=== PATIENT | male | born 2000 | race Caucasian/White ===

== ENCOUNTER → 2024-10-06 11:26 | Outpatient (CLI) | payer OTHER, SELFPAY ==
--- NOTE | 2024-10-06 11:29 | DI.RAD.S_ITS ---
PROCEDURE: XR CHEST 2V INDICATIONS: Chest tightness TECHNIQUE: 2 views of the chest were acquired. COMPARISON: None. FINDINGS: Surgical changes and devices: None. Lungs and pleura: Lungs are clear. No pleural effusions or pneumothorax. Mediastinum: Mediastinal contours are normal. Heart size is normal. Bones and chest wall: No suspicious bony abnormalities. Soft tissues appear unremarkable. IMPRESSION: No acute cardiopulmonary abnormality is seen. Dictated by: Brodie Lara M.D. on 10/06/2024 at 10:53 Approved by: Brodie Lara M.D. on 10/06/2024 at 10:53
== END ==
PROVIDERS: Referring Provider Registered Nurse; Visit Provider Registered Nurse
DX: R07.89 Other chest pain (principal)
CPT/HCPCS: 71046

== ENCOUNTER 2024-10-09 10:47 | Emergency (ER) | payer OTHER, SELFPAY ==
[2024-10-09 11:15] VITALS: BP 139/73; PULSE 79; RESP 18; TEMP 36.5; O2SAT 98; BMI 35.9
--- NOTE | 2024-10-09 11:18 | DI.RAD.S_ITS ---
PROCEDURE: XR CHEST 1V INDICATIONS: chest pain TECHNIQUE: One view of the chest was acquired. COMPARISON: [facility], CR, XR CHEST 2V, 10/06/2024, 11:25. FINDINGS AND IMPRESSION: On this limited single view study with low lung volumes, no airspace consolidation or pleural effusion is seen. Normal heart size, unchanged. Unremarkable osseous structures. Dictated by: Tra Rivera M.D. on 10/09/2024 at 12:08 Approved by: Tra Rivera M.D. on 10/09/2024 at 12:08
--- NOTE | 2024-10-09 11:19 | EKG_ITS ---
[address] [address] [address] [address] Test Date: 2024-10-09 Pat Name: Arash Ocampo Department: Room: Gender: Male [employer]: VAL : 2000 Requested By: Order Number: [id number] Reading MD: Dmitriy Zaidi MD Measurements Intervals [place] Rate: 81 P: 20 SD: 144 QRS: 7 QRSD: 86 T: 45 QT: 350 QTc: 406 Interpretive Statements Normal sinus rhythm Electronically Signed On 10-10-2024 7:36:26 PST by Dmitriy Zaidi MD
[2024-10-09 11:44] LABS: Add Manual Diff / Slide Review NO; Basophils Absolute Auto 100 /uL (0-100); Basophils Percent Auto 1.1 % (0-2); Eosinophils Absolute Auto 100 /uL (0-450); Eosinophils Percent Auto 0.9 % (2-4); Hematocrit 42.6 % (41-53); Lymphocytes Absolute Auto 1900 /uL (1100-4500); Lymphocytes Percent Auto 29.8 % (25-40); Mean Corpuscular HGB Conc 35.3 % (30-36); Mean Corpuscular Hemoglobin 27.7 PG (26-34); Mean Corpuscular Volume 78.6 fL (80-100); Monocytes Absolute Auto 500 /uL (0-900); Monocytes Percent Auto 7.9 % (3-14); Neutrophils Absolute Auto 3800 /uL (1500-7000); Neutrophils Percent Auto 60.3 % (50-75); Platelet Count 256 X10^3/uL (150-400); Red Blood Cell Count 5.41 X10^6/uL (4.5-5.9); Red Cell Distribution Width 14.2 % (11.6-14.8); White Blood Cell Count 6.3 X10^3/uL (4.5-11.0)
[2024-10-09 11:50] LABS: INR 1.1 (0.9-1.3)
[2024-10-09 11:52] LABS: Alanine Aminotransferase 85 IU/L (<50); Albumin 4.5 g/dL (3.5-5.0); Albumin Globulin Ratio 1.5 (1.0-2.8); Alkaline Phosphatase 63 U/L (38-126); Aspartate Aminotransferase 54 IU/L (17-59); BUN Creatinine Ratio 12.3 (6-22); Bilirubin Total 0.5 mg/dL (0.2-1.3); Blood Urea Nitrogen 10 mg/dL (9-20); Carbon Dioxide 23 mmol/L (22-32); Chloride 106 mmol/L (98-107); Creatine Kinase 114 U/L (55-170); Estimated Glomerular Filt Rate > 60 mL/min (>60); Globulin 3.1 g/dL (1.7-4.1); Glucose 102 mg/dL (70-100); HEMOLYSIS < 15 (0-50); Lipase 65 U/L (23-300); Magnesium 1.9 mg/dL (1.6-2.3); Sodium 138 mmol/L (137-145); Total Protein 7.6 g/dL (6.3-8.2)
[2024-10-09 11:53] LABS: PTT Partial Thromboplastin Tim 35 SECONDS (25.1-36.5)
[2024-10-09 12:04] LABS: NT-proBNP (BNP-Adult 18+) < 20 pg/mL (<125); Troponin I < 0.012 ng/mL (0.01-0.034)
--- NOTE | 2024-10-09 13:42 | ED_ITS ---
HPI - Chest Pain <Jane Guerrero PA-C - Last Filed: 10/09/24 20:08> General Chief Complaint: Chest Pain Stated Complaint: Mild chest pain Time Seen by Provider: 10/09/24 13:40 Source: patient Mode of arrival: Ambulatory Limitations: no limitations History of Present Illness HPI narrative: Mr. Ocampo is a pleasant 23-year-old male with a past medical history of ADHD, asthma who presents to the emergency department for chest tightness x3 days and right upper quadrant abdominal pain x1 week. Patient states he has been having some intermittent right upper quadrant abdominal pain nausea and vomiting over the last week which is improving however 3 days ago he noticed some sensation of tightness in his chest and in the epigastric region of his abdomen. This chest tightness is worsened by smoking marijuana, drinking alcohol, occasionally food. Because of his history of asthma he had a chest x- ray performed on 10/06/2024 by the walk-in clinic which was negative. He did have an episode of vomiting last night however no nausea today. Denies wheezing, difficulty breathing, shortness of breath, diarrhea, fevers, chills, cough. He did start taking Zepbound 2 weeks ago for weight loss. Related Data Home Medications Medication Instructions Recorded Confirmed albuterol sulfate 90 mcg/actuation 1 inh inhalation ONCE 10/06/24 10/06/24 aerosol inhaler methylphenidate HCl 36 mg 36 mg PO DAILY 10/06/24 10/06/24 tablet,extended release 24 hr (Concerta) Previous Rx's Medication Instructions Recorded ondansetron 4 mg disintegrating 4 mg PO Q8H PRN nausea and 10/09/24 tablet vomiting #14 tabs pantoprazole 40 mg tablet,delayed 40 mg PO DAILY #14 tabs 10/09/24 release (Protonix) Allergies Allergy/AdvReac Type Severity Reaction Status Date / Time No Known Drug Allergies Allergy Unverified 10/06/24 11:07 Review of Systems <Jane Guerrero PA-C - Last Filed: 10/09/24 20:08> Review of Systems ROS Unobtainable: All systems reviewed & are unremarkable except as noted in HPI and below Patient History <Jane Guerrero PA-C - Last Filed: 10/09/24 20:08> Social History Smoking Status: Never smoker Smoking Status: Never smoker Exam <Jane Guerrero PA-C - Last Filed: 10/09/24 20:08> Narrative Exam Narrative: GENERAL: 23 year old patient appears stated age. Obese patient, in no acute distress. HEAD: Atraumatic. Normocephalic. EYES: No scleral icterus. No injection or drainage. NECK: Trachea midline. Cervical ROM intact. CARDIOVASCULAR: Regular rate and rhythm. RESPIRATORY: ?Nonlabored respirations. ?Speaking in clear, full sentences. ?Clear to auscultation. Breath sounds equal bilaterally. No wheezes, rales, or rhonchi. ? GASTROINTESTINAL: Abdomen soft, non-tender, nondistended. Abdomen is protuberant. Subjective right upper quadrant and epigastric pain with no reproducible tenderness. EXTREMITIES: No edema or joint tenderness. NEURO: AOx3. ?Clear speech. ?Moves all 4 extremities appropriately. SKIN: No rash or erythema of visible areas Initial Vital Signs Initial Vital Signs: Vital Signs Temperature 97.7 F 10/09/24 11:15 Pulse Rate 79 10/09/24 11:15 Respiratory Rate 18 10/09/24 11:15 Blood Pressure 139/73 10/09/24 11:15 Pulse Oximetry 98 10/09/24 11:15 Oxygen Delivery Method Room Air 10/09/24 11:15 <Maurice Merchant MD - Last Filed: 10/11/24 12:42> Initial Vital Signs Initial Vital Signs: Vital Signs Temperature 97.7 F 10/09/24 11:15 Pulse Rate 79 10/09/24 11:15 Respiratory Rate 18 10/09/24 11:15 Blood Pressure 139/73 10/09/24 11:15 Pulse Oximetry 98 10/09/24 11:15 Oxygen Delivery Method Room Air 10/09/24 11:15 Scores <Jane Guerrero PA-C - Last Filed: 10/09/24 20:08> HEART Score Heart Score history: Slightly Suspicious Heart Score EKG: Normal Heart Score Age: < 45 years old Heart Score risk factors: 1-2 risk factors Heart Score troponin: < or = to normal limit Heart Score Total: 1 PERC Score Age greater than or equal to 50 years: No Heart rate greater than or equal to 100 bpm: No Room Air O2 Sat less than 95%: No Unilateral leg swelling: No Recent trauma or surgery: No Hemoptysis: No Prior PE or DVT: No Hormone Use: No Total PERC Score: 0 <Maurice Merchant MD - Last Filed: 10/11/24 12:42> HEART Score Heart Score Total: 1 PERC Score Total PERC Score: 0 Course <Jane Guerrero PA-C - Last Filed: 10/09/24 20:08> Orders Ordered: Discontinued Medications Aspirin (Aspirin 81 Mg Chew Tab) 324 mg PO NOW ONE Stop: 10/09/24 11:19 Last Admin: 10/09/24 13:44 Dose: Not Given Documented By: KARINA Ondansetron HCl (Ondansetron 4 Mg/2 Ml Inj) 4 mg IV NOW ONE Stop: 10/09/24 13:56 Last Admin: 10/09/24 14:37 Dose: 4 mg Documented By: CARA Pantoprazole Sodium (Pantoprazole 40 Mg Vial) 40 mg IV NOW ONE Stop: 10/09/24 13:56 Last Admin: 10/09/24 14:37 Dose: 40 mg Documented By: CARA Vital Signs Vital signs: Vital Signs - 8 hr 10/09/24 15:31 Pulse Rate 73 Respiratory Rate 20 Blood Pressure 128/74 Pulse Oximetry 97 Oxygen Delivery Method Room Air <Maurice Merchant MD - Last Filed: 10/11/24 12:42> Orders Ordered: Discontinued Medications Aspirin (Aspirin 81 Mg Chew Tab) 324 mg PO NOW ONE Stop: 10/09/24 11:19 Last Admin: 10/09/24 13:44 Dose: Not Given Documented By: KARINA Ondansetron HCl (Ondansetron 4 Mg/2 Ml Inj) 4 mg IV NOW ONE Stop: 10/09/24 13:56 Last Admin: 10/09/24 14:37 Dose: 4 mg Documented By: CARA Pantoprazole Sodium (Pantoprazole 40 Mg Vial) 40 mg IV NOW ONE Stop: 10/09/24 13:56 Last Admin: 10/09/24 14:37 Dose: 40 mg Documented By: CARA Vital Signs Vital signs: Vital Signs - 8 hr 10/09/24 15:31 Pulse Rate 73 Respiratory Rate 20 Blood Pressure 128/74 Pulse Oximetry 97 Oxygen Delivery Method Room Air MDM - Chest Pain <Jane Guerrero PA-C - Last Filed: 10/09/24 20:08> Medical Records Data Attestation: I reviewed the patient's medical records. Lab Data 10/09/24 11:30 10/09/24 11:30 Labs: Lab Results 10/09/24 Range/Units 11:30 WBC 6.3 (4.5-11.0) X10^3/uL RBC 5.41 (4.5-5.9) X10^6/uL Hgb 15.0 (13.5-17.5) g/dL Hct 42.6 (41-53) % MCV 78.6 L (80-100) fL MCH 27.7 (26-34) PG MCHC 35.3 (30-36) % RDW 14.2 (11.6-14.8) % Plt Count 256 (150-400) X10^3/uL Neut % (Auto) 60.3 (50-75) % Lymph % (Auto) 29.8 (25-40) % [place] % (Auto) 7.9 (3-14) % Eos % (Auto) 0.9 L (2-4) % Baso % (Auto) 1.1 (0-2) % Neut # (Auto) 3800 (6496-2041) /uL Lymph # (Auto) 1900 (2628-6121) /uL [place] # (Auto) 500 (0-900) /uL Eos # (Auto) 100 (0-450) /uL Baso # (Auto) 100 (0-100) /uL PT 13.0 H (9.4-12.5) SECONDS INR 1.1 (0.9-1.3) APTT 35 (25.1-36.5) SECONDS Sodium 138 (137-145) mmol/L Potassium 4.0 (3.4-5.1) mmol/L Chloride 106 (98-107) mmol/L Carbon Dioxide 23 (22-32) mmol/L BUN 10 (9-20) mg/dL Creatinine 0.81 (0.66-1.25) mg/dL Estimated GFR > 60 (>60) mL/min BUN/Creatinine Ratio 12.3 (6-22) Glucose 102 H (70-100) mg/dL Calcium 9.0 (8.4-10.2) mg/dL Magnesium 1.9 (1.6-2.3) mg/dL Total Bilirubin 0.5 (0.2-1.3) mg/dL AST 54 (17-59) IU/L ALT 85 H (<50) IU/L Alkaline Phosphatase 63 (38-126) U/L Total Creatine Kinase 114 (55-170) U/L Troponin I < 0.012 (0.01-0.034) ng/mL NT-Pro-B Natriuret Pep < 20 (<125) pg/mL Total Protein 7.6 (6.3-8.2) g/dL Albumin 4.5 (3.5-5.0) g/dL Globulin 3.1 (1.7-4.1) g/dL Albumin/Globulin Ratio 1.5 (1.0-2.8) Lipase 65 (23-300) U/L Imaging Data Chest x-ray: Radiologist's Impression: PROCEDURE: XR CHEST 1V INDICATIONS: chest pain TECHNIQUE: One view of the chest was acquired. COMPARISON: [facility], XR CHEST 2V, 10/06/2024, 11:25. FINDINGS AND IMPRESSION: On this limited single view study with low lung volumes, no airspace consolidation or pleural effusion is seen. Normal heart size, unchanged. Unremarkable osseous structures. Abdomen US: Radiologist's Impression: PROCEDURE: US ABDOMEN LIMITED INDICATIONS: RIGHT UPPER QUADRANT PAIN TECHNIQUE: Real-time focused scanning was performed of the abdomen, with image documentation. COMPARISON: [facility], XR CHEST 1V, 10/09/2024, 11:33. FINDINGS: The liver demonstrates mildly enlarged size. The liver demonstrates generalized moderately increased echogenicity. This decreases ultrasound sensitivity for detection of hepatic masses. Within the left lobe of the liver, there is apparent focus of calcification. There is apparent focal fatty sparing seen adjacent to the gallbladder. No findings of gallstones or sludge are seen. The gallbladder wall is not thickened, measuring 3 mm or less. No specific pericholecystic fluid is seen. The sonographic Chow sign is negative. There is no biliary dilatation, the common hepatic duct measures 3-4 mm. The pancreas is not well seen. Overall scan quality is limited by overlying bowel gas. IMPRESSION: The gallbladder demonstrates a normal sonographic appearance. No biliary dilatation is seen. Mildly enlarged, fatty infiltrated liver. Apparent focus of calcification seen within the left liver, which may related to vascular calcification, or this focus may simply be artifactual. Attention should be paid on follow-up studies, although no specific imaging follow-up is recommended. ECG Data Interpretation: Normal sinus rhythm with a rate of 81 beats per minute and a QTC of 406. [facility] Narrative Medical decision making narrative: 23-year-old male with a past medical history of ADHD, asthma who presents to the emergency department for chest tightness x3 days and right upper quadrant abdominal pain x1 week. Differential diagnosis includes but is not limited to cholecystitis, cholelithiasis, fatty liver, gastritis, GERD, medication side effect, ACS, asthma exacerbation, etc. On exam patient is in no acute distress, nontoxic appearing, vital signs within normal limits, PERC negative. Lungs clear to auscultation bilaterally. Subjective epigastric and right upper quadrant abdominal pain with intermittent nausea and vomiting and some chest tightness exacerbated by smoking weed, eating, drinking alcohol. Suspect symptoms are more related to GI rather than cardiac. Cardiac workup initiated in triage reveals negative chest x-ray, negative troponin, negative BNP. Chest sx constant 3 days, delta trop not warranted. Patient does have slightly elevated ALT at 85 which he reports having before. Normal lipase 65. We will add on Zofran, Protonix, right upper quadrant ultrasound. Patient's symptoms improved after ED treatment. Right upper quadrant ultrasound reveals normal gallbladder. There is a mildly enlarged, fatty infiltration of the liver. And an apparent focus of calcification seen within the left liver which may be related to vascular calcification or this focused may simply be artifactual. Discussed with patient that his symptoms are consistent with possible gastritis/acid reflux/fatty liver. Recommended avoiding alcohol and marijuana at this time, healthy diet, exercise. Prescribed Protonix and Zofran and recommended follow up with PCP and possibly GI for further evaluation. Patient's imaging results were printed and discussed with him including incidental findings. He verbalized understanding of all information and is agreeable to this plan. Pain much improved at this time, tolerating PO. Stable for discharge home. <Maurice Merchant MD - Last Filed: 10/11/24 12:42> Lab Data Labs: Lab Results 10/09/24 Range/Units 11:30 WBC 6.3 (4.5-11.0) X10^3/uL RBC 5.41 (4.5-5.9) X10^6/uL Hgb 15.0 (13.5-17.5) g/dL Hct 42.6 (41-53) % MCV 78.6 L (80-100) fL MCH 27.7 (26-34) PG MCHC 35.3 (30-36) % RDW 14.2 (11.6-14.8) % Plt Count 256 (150-400) X10^3/uL Neut % (Auto) 60.3 (50-75) % Lymph % (Auto) 29.8 (25-40) % [place] % (Auto) 7.9 (3-14) % Eos % (Auto) 0.9 L (2-4) % Baso % (Auto) 1.1 (0-2) % Neut # (Auto) 3800 (7019-1961) /uL Lymph # (Auto) 1900 (6440-1900) /uL [place] # (Auto) 500 (0-900) /uL Eos # (Auto) 100 (0-450) /uL Baso # (Auto) 100 (0-100) /uL PT 13.0 H (9.4-12.5) SECONDS INR 1.1 (0.9-1.3) APTT 35 (25.1-36.5) SECONDS Sodium 138 (137-145) mmol/L Potassium 4.0 (3.4-5.1) mmol/L Chloride 106 (98-107) mmol/L Carbon Dioxide 23 (22-32) mmol/L BUN 10 (9-20) mg/dL Creatinine 0.81 (0.66-1.25) mg/dL Estimated GFR > 60 (>60) mL/min BUN/Creatinine Ratio 12.3 (6-22) Glucose 102 H (70-100) mg/dL Calcium 9.0 (8.4-10.2) mg/dL Magnesium 1.9 (1.6-2.3) mg/dL Total Bilirubin 0.5 (0.2-1.3) mg/dL AST 54 (17-59) IU/L ALT 85 H (<50) IU/L Alkaline Phosphatase 63 (38-126) U/L Total Creatine Kinase 114 (55-170) U/L Troponin I < 0.012 (0.01-0.034) ng/mL NT-Pro-B Natriuret Pep < 20 (<125) pg/mL Total Protein 7.6 (6.3-8.2) g/dL Albumin 4.5 (3.5-5.0) g/dL Globulin 3.1 (1.7-4.1) g/dL Albumin/Globulin Ratio 1.5 (1.0-2.8) Lipase 65 (23-300) U/L Discharge Plan Departure Patient Disposition: Home Clinical Impression: Fatty infiltration of liver, Abdominal pain, RUQ, Abdominal pain, epigastric Instructions: DI for Nonalcoholic Fatty Liver Disease Activity Restrictions/Additional Instructions: They you for coming to the emergency department. Today you were evaluated for chest pain but also right upper quadrant abdominal discomfort and nausea and vomiting. Your workup is reassuring from a cardiac/pulmonary viewpoint. Your liver enzymes (ALT) was slightly elevated and the ultrasound of your liver showed fatty liver. It is very important to follow up with the primary care doctor for further evaluation, make healthy lifestyle changes such as decreased fatty foods, increase water and exercise. I recommend you avoid alcohol or smoking. I prescribed you a daily medication to take to help with gastritis/acid reflux in addition to an as-needed nausea medication. Please return to the emergency department if you develop any new or concerning symptoms, worsening pain or other concerns. Please follow up with your primary care doctor within the next 2-3 days for ER follow-up. (If you do not have a PCP you can call [phone]. ?to schedule an appointment with an [facility] Primary Care Provider) IF YOU DEVELOP ANY NEW OR WORSENING SYMPTOMS, RETURN TO THE ER! Please read the attached instructions, they highlight more specific treatments and interventions for you at home. Thank you for letting me participate in your care, Jane Guerrero PA-C Prescriptions: New pantoprazole [Protonix] 40 mg tablet,delayed release (DR/EC) 40 mg PO DAILY Qty: 14 0RF ondansetron 4 mg tablet,disintegrating 4 mg PO Q8H PRN (Reason: nausea and vomiting) Qty: 14 0RF No Action methylphenidate HCl [Concerta] 36 mg tablet extended release 24hr 36 mg PO DAILY albuterol sulfate 90 mcg/actuation HFA aerosol inhaler 1 inh inhalation ONCE Stand Alone Forms: Patient Portal/API/Survey ED Sign-out <Maurice Merchant MD - Last Filed: 10/11/24 12:42> Cosign ED Attending Cosignature Attestation: I was immediately available in the department for consultation. ?This documentation has been reviewed and I agree with assessment and plan. Supervised by Maurice Merchant MD
--- NOTE | 2024-10-09 13:55 | DI.US.S_ITS ---
PROCEDURE: US ABDOMEN LIMITED INDICATIONS: RIGHT UPPER QUADRANT PAIN TECHNIQUE: Real-time focused scanning was performed of the abdomen, with image documentation. COMPARISON: [facility], CR, XR CHEST 1V, 10/09/2024, 11:33. FINDINGS: The liver demonstrates mildly enlarged size. The liver demonstrates generalized moderately increased echogenicity. This decreases ultrasound sensitivity for detection of hepatic masses. Within the left lobe of the liver, there is apparent focus of calcification. There is apparent focal fatty sparing seen adjacent to the gallbladder. No findings of gallstones or sludge are seen. The gallbladder wall is not thickened, measuring 3 mm or less. No specific pericholecystic fluid is seen. The sonographic Chow sign is negative. There is no biliary dilatation, the common hepatic duct measures 3-4 mm. The pancreas is not well seen. Overall scan quality is limited by overlying bowel gas. IMPRESSION: The gallbladder demonstrates a normal sonographic appearance. No biliary dilatation is seen. Mildly enlarged, fatty infiltrated liver. Apparent focus of calcification seen within the left liver, which may related to vascular calcification, or this focus may simply be artifactual. Attention should be paid on follow-up studies, although no specific imaging follow-up is recommended. Dictated by: Brodie Lara M.D. on 10/09/2024 at 14:01 Approved by: Brodie Lara M.D. on 10/09/2024 at 14:03
[2024-10-09] MEDS: ONDANSETRON 4 MG/2 ML INJ IV (14:37)
[2024-10-09] MEDS: PANTOPRAZOLE 40 MG VIAL IV (14:37)
[2024-10-09 15:31] VITALS: BP 128/74; PULSE 73; RESP 20; O2SAT 97
== END 2024-10-09 15:47 | disposition home or self-care (01) ==
PROVIDERS: Emergency Medicine; Emergency Provider Physician Assistant
DX: R10.11 Right upper quadrant pain (principal); R10.13 Epigastric pain; K76.0 Fatty (change of) liver, not elsewhere classified
CPT/HCPCS: 36415; 71045; 76705; 80053; 82550; 83690; 83735; 83880; 84484; 85025; 85610; 85730; 93005; 96374; 96375; 99284; J2405; J2470

== ENCOUNTER → 2024-11-07 09:46 | Outpatient (CLI) | payer OTHER, SELFPAY ==
[2024-11-07 18:52] LABS: Add Manual Diff / Slide Review NO; Basophils Absolute Auto 0 /uL (0-100); Basophils Percent Auto 0.6 % (0-2); Eosinophils Absolute Auto 0 /uL (0-450); Eosinophils Percent Auto 0.8 % (2-4); Hematocrit 45.3 % (41-53); Hemoglobin 15.7 g/dL (13.5-17.5); Lymphocytes Absolute Auto 1800 /uL (1100-4500); Lymphocytes Percent Auto 29.5 % (25-40); Mean Corpuscular HGB Conc 34.6 % (30-36); Mean Corpuscular Hemoglobin 27.3 PG (26-34); Mean Corpuscular Volume 79.1 fL (80-100); Monocytes Absolute Auto 500 /uL (0-900); Neutrophils Absolute Auto 3600 /uL (1500-7000); Neutrophils Percent Auto 60.1 % (50-75); Platelet Count 220 X10^3/uL (150-400); Red Blood Cell Count 5.73 X10^6/uL (4.5-5.9); Red Cell Distribution Width 13.6 % (11.6-14.8)
[2024-11-07 18:58] LABS: Alanine Aminotransferase 55 IU/L (<50); Albumin 4.6 g/dL (3.5-5.0); Albumin Globulin Ratio 1.6 (1.0-2.8); Alkaline Phosphatase 80 U/L (38-126); Amylase 57 U/L (30-110); Aspartate Aminotransferase 35 IU/L (17-59); BUN Creatinine Ratio 13.5 (6-22); Bilirubin Total 0.7 mg/dL (0.2-1.3); Blood Urea Nitrogen 13 mg/dL (9-20); Calcium 9.7 mg/dL (8.4-10.2); Carbon Dioxide 20 mmol/L (22-32); Chloride 103 mmol/L (98-107); Cholesterol 201 mg/dL (140-199); Estimated Glomerular Filt Rate > 60 mL/min (>60); Gamma Glutamyl Transpeptidase 27 U/L (15-73); Globulin 2.9 g/dL (1.7-4.1); Glucose 104 mg/dL (70-100); HDL Cholesterol 28 mg/dL (40-60); HEMOLYSIS 16 (0-50); Hemoglobin A1C% w Est Avg Glu 4.7 % (4.0-6.0); LDL Cholesterol Calculated 136 mg/dL (<100); Lipase 70 U/L (23-300); Potassium 4.2 mmol/L (3.4-5.1); Sodium 136 mmol/L (137-145); Total Protein 7.5 g/dL (6.3-8.2); Triglycerides 183 mg/dL (35-150)
== END ==
PROVIDERS: PCP Physician Assistant Medical; Visit Provider Physician Assistant Medical
DX: R10.13 Epigastric pain (principal); K76.0 Fatty (change of) liver, not elsewhere classified; R10.11 Right upper quadrant pain; E66.9 Obesity, unspecified; R07.9 Chest pain, unspecified; Z91.89 Other specified personal risk factors, not elsewhere classified; K21.9 Gastro-esophageal reflux disease without esophagitis
CPT/HCPCS: 80053; 80061; 82150; 82977; 83036; 83690; 84443; 85025

== ENCOUNTER 2024-11-28 09:00 | Day surgery (SDC) | payer OTHER, SELFPAY ==
--- NOTE | 2024-11-28 | PATH_ITS ---
[facility] Accession Number: [id number] No. of containers..01 Tissue . 01 Material submitted: . stomach - ANTRUM . 01 Diagnosis: GASTRIC ANTRUM, BIOPSY: Gastric antral mucosa with mild chronic inflammation. Negative for Helicobacter organisms by immunohistochemistry. Negative for intestinal metaplasia. Negative for dysplasia or malignancy. MRV 12/02/2024 1622 Local . 01 Electronically signed: . Hari Haney MD, PhD, Pathologist NPI- [id number] . 01 Gross description: . ANTRUM: Received in formalin is 1 fragment(s) of malloy, soft tissue measuring 0.4 x 0.2 x 0.1 cm submitted entirely in 1 cassette(s) /BRYAN 11/28/2024 2330 Local . 01 Microscopic: . An immunohistochemical stain was performed to evaluate for Helicobacter organisms and is negative. The control stain showed appropriate reactivity. . * This test was developed and the performance characteristics were validated by [facility]. It has not been cleared or approved by the U.S. Food and Drug Administration. . 01 Pathologist provided ICD-10: R10.13, K29.70 . 01 CPT . 091588, X18517 Specimen Comment: A courtesy copy of this report has been sent to [facility] Pathology Performed at: [address] [facility], [place], [place] [id number] MD Humberto Roche MD Phone: [phone]
[2024-11-28 09:47] VITALS: BMI 34.1
[2024-11-28] MEDS: LACTATED RINGERS 1,000 ML 42 ML IV (09:55)
[2024-11-28 09:56] VITALS: BP 122/73; PULSE 80; RESP 18; TEMP 36.9; O2SAT 97
--- NOTE | 2024-11-28 10:24 | PM.PREOP ---
Pre-operative Note Interval Note History & Physical reviewed/Exam performed by Physician: Yes Changes to H&P: No
--- NOTE | 2024-11-28 10:36 | P.OP.EGD_ITS ---
Operative Date/Time/Diagnoses Date of procedure: 11/28/24 Time of procedure: 10:36 Pre-op diagnosis: Refractory GERD Post-op diagnosis: same Procedure & Clinicians Study performed: Esophagogastroduodenoscopy with biopsy Same procedure as scheduled: Yes Indications: GERD refractory to PPIs Surgeon: Pedro De Guzman Procedure Notes SCOAP/Timeout: Performed Procedure in detail: Consent was obtained. Time-out performed. Bite block placed. Mac induced. Gastroscope was inserted through the bite block into the 2nd portion of the duodenal. Duodenal appeared normal. There was mild antral gastritis. Biopsies were obtained. Retroflexed view did not show a significant hiatal hernia. Z- line was normal and located 40 cm from the incisors. The esophagus appeared normal. Gastroscope was withdrawn. Sedation minutes: 3 Findings: gastritis Specimen(s): other (antral biopsy) Complications: none Impression: mild gastritis Post-procedure Recommendations: Reflux diet Follow up: as needed Disposition: PACU
[2024-11-28 10:37] VITALS: BP 107/71; PULSE 83; RESP 19; TEMP 36.3; O2SAT 96
[2024-11-28 10:43] VITALS: BP 119/84; PULSE 82; RESP 12; O2SAT 97
[2024-11-28 10:52] VITALS: BP 128/86; PULSE 78; RESP 17; O2SAT 96
== END 2024-11-28 11:29 | disposition home or self-care (01) ==
PROVIDERS: PCP Physician Assistant Medical; Referring Provider Surgery; Visit Provider Surgery
PROC: 0DJ08ZZ Inspection of Upper Intestinal Tract, Via Natural or Artificial Opening Endoscopic (ICD-10-PCS; CPT 43239; principal; 2024-11-28 10:30)
DX: K21.9 Gastro-esophageal reflux disease without esophagitis (principal); K29.50 Unspecified chronic gastritis without bleeding
CPT/HCPCS: 43239; J2704

== ENCOUNTER → 2025-01-21 10:27 | Outpatient (CLI) | payer OTHER, SELFPAY ==
[2025-01-21 19:44] LABS: Alanine Aminotransferase 35 IU/L (<50); Albumin 4.5 g/dL (3.5-5.0); Albumin Globulin Ratio 1.7 (1.0-2.8); Alkaline Phosphatase 68 U/L (38-126); Aspartate Aminotransferase 31 IU/L (17-59); BUN Creatinine Ratio 14.1 (6-22); Bilirubin Total 0.5 mg/dL (0.2-1.3); Blood Urea Nitrogen 13 mg/dL (9-20); Calcium 9.4 mg/dL (8.4-10.2); Carbon Dioxide 22 mmol/L (22-32); Chloride 107 mmol/L (98-107); Cholesterol 203 mg/dL (140-199); Estimated Glomerular Filt Rate > 60 mL/min (>60); Globulin 2.6 g/dL (1.7-4.1); Glucose 90 mg/dL (70-99); HDL Cholesterol 33 mg/dL (40-60); HEMOLYSIS < 15 (0-50); LDL Cholesterol Calculated 151 mg/dL (<100); Potassium 4.3 mmol/L (3.4-5.1); Sodium 139 mmol/L (137-145); Total Protein 7.1 g/dL (6.3-8.2); Triglycerides 96 mg/dL (35-150)
== END ==
PROVIDERS: PCP Physician Assistant Medical; Visit Provider Physician Assistant Medical
DX: E78.5 Hyperlipidemia, unspecified (principal); R79.89 Other specified abnormal findings of blood chemistry
CPT/HCPCS: 80053; 80061